=== PATIENT | female | born 1965 | race Caucasian/White ===

== ENCOUNTER 2020-05-24 00:50 | Emergency (ER) | payer BC ==
[~2020-05-24] VITALS: Ht 160 cm; Wt 77.1 kg
[2020-05-24] MEDS ORDERED: VENT7GM INH (01:31)
== END 2020-05-24 01:50 | disposition home or self-care (01) ==
LOC: ED 00:50
DX: J20.9 Acute bronchitis, unspecified (principal); Z20.828 Contact with and (suspected) exposure to other viral communicable diseases; F17.210 Nicotine dependence, cigarettes, uncomplicated; Z88.0 Allergy status to penicillin; Z88.6 Allergy status to analgesic agent

== ENCOUNTER → 2020-08-01 | Outpatient (CLI) | payer BC ==
[~2020-08-01] MED LIST: VENT7GM INH
== END | disposition home or self-care (01) ==
LOC: COVID19 14:58
PROVIDERS: ATTEND Nurse Practitioner Primary Care
DX: Z20.828 Contact with and (suspected) exposure to other viral communicable diseases (principal)

== ENCOUNTER 2021-04-23 16:13 | Emergency (ER) | payer BC ==
[~2021-04-23] VITALS: Wt 75.3 kg
[2021-04-23] MEDS ORDERED: TYLENOL325 M1 PO (17:41)
[2021-04-23] MEDS ORDERED: ZOFRAN4 MG PO (17:41)
== END 2021-04-23 18:02 | disposition home or self-care (01) ==
LOC: ED 16:13
DX: R51.9 Headache, unspecified (principal); Z20.822 Contact with and (suspected) exposure to COVID-19; R11.0 Nausea; R43.8 Other disturbances of smell and taste; R53.83 Other fatigue; Z88.0 Allergy status to penicillin; Z88.5 Allergy status to narcotic agent; Z79.899 Other long term (current) drug therapy

== ENCOUNTER → 2021-04-28 | Outpatient (CLI) | payer BC ==
[~2021-04-28] MED LIST changes: +TYLENOL325 M1 PO; +ZOFRAN4 MG PO
[2021-04-28 15:17] LABS: BASO % 0.4 % (0.0-1.0); EOS # 0.1 10*3/uL (0.0-0.4); EOS % 1.8 % (1.0-4.0); HEMATOCRIT 38.3 % (37.0-47.0); LYMPH # 3.1 10*3/uL (1.3-4.4); LYMPH % 38.4 % (27.0-41.0); MEAN CELL VOLUME 93.2 fl (81.0-99.0); MEAN CORPUSCULAR HGB 31.4 pg (27.0-31.0); MEAN CORPUSCULAR HGB CONC 33.7 g/dl (33.0-37.0); MONO # 0.7 10*3/uL (0.1-1.0); MONO % 9.3 % (3.0-9.0); NEUT % 49.8 % (47.0-73.0); PLATELET COUNT AUTOMATED 238 10*3/uL (130-400); RED BLOOD COUNT 4.11 10*6/uL (4.10-5.10); RETICULOCYTE % 0.93 % (0.50-2.50)
[2021-04-28 15:18] LABS: BILIRUBIN Negative (Negative); BLOOD Trace-Lysed (Negative); CLARITY Clear (Clear); COLOR Yellow (Yellow); GLUCOSE Negative (Negative); KETONE Negative (Negative); LEUKO ESTERASE 2+ (Negative); NITRITE Negative (Negative); PH 5.5 (4.5-8.0); SPECIFIC GRAVITY 1.015 (1.001-1.030)
[2021-04-28 15:30] LABS: BACTERIA TRACE
[2021-04-28 15:47] LABS: ALBUMIN 3.6 gm/dl (3.1-4.5); ALKALINE PHOSPHATASE 102 U/L (45-117); BUN 16 mg/dl (7-24); CHLORIDE 104 mmol/L (98-107); CHOLESTEROL 166 mg/dL (<200); CREATININE 0.88 mg/dL (0.55-1.02); GAMMA GLUTAMYL TRANSPEPTIDASE 23 U/L (5-55); IRON 91 ug/dL (50-170); LDL CHOLESTEROL 74 mg/dL (9-159); SGOT/AST 18 IU/L (3-35); SGPT/ALT 31 U/L (12-78); SODIUM 138 mmol/L (136-145); TOTAL IRON BINDING CAPACITY 354 ug/dl (250-450); TOTAL PROTEIN 7.1 gm/dL (6.4-8.2); TRIGLYCERIDES 204 mg/dl (<150)
[2021-04-28 15:54] LABS: THYROID STIM HORMONE (HS) 0.619 uIU/ml (0.358-4.75); URIC ACID 5.1 mg/dL (2.6-6.0)
[2021-04-28 15:56] LABS: FERRITIN 125.2 ng/mL (10.0-291.0); VITAMIN D, 25-HYDROXY 80.8 ng/mL (30-100)
[2021-04-29 08:08] LABS: RHEUMATOID ARTHRITIS FACTOR <10.0 IU/mL (0.0-13.9)
[2021-04-29 13:06] LABS: ANTI-DSDNA ANTIBODIES <1 IU/mL (0-9)
== END | disposition home or self-care (01) ==
LOC: LAB 14:53
PROVIDERS: ATTEND Family Medicine
DX: R79.89 Other specified abnormal findings of blood chemistry (principal); R53.83 Other fatigue; E78.5 Hyperlipidemia, unspecified; E55.9 Vitamin D deficiency, unspecified

== ENCOUNTER → 2021-05-16 | Outpatient (CLI) | payer BC ==
[2021-05-16 15:49] LABS: BILIRUBIN Negative (Negative); BLOOD Negative (Negative); CLARITY Clear (Clear); COLOR Yellow (Yellow); GLUCOSE Negative (Negative); KETONE Negative (Negative); LEUKO ESTERASE Negative (Negative); NITRITE Negative (Negative); SPECIFIC GRAVITY 1.015 (1.001-1.030); UROBILINOGEN 0.2 E.U./dl (0.0-1.0)
[2021-05-16 16:46] LABS: BACTERIA TRACE
== END | disposition home or self-care (01) ==
LOC: LAB 14:30
PROVIDERS: ATTEND Family Medicine
DX: R79.89 Other specified abnormal findings of blood chemistry (principal); R53.83 Other fatigue

== ENCOUNTER → 2021-06-01 | Outpatient (CLI) | payer BC | END | disposition home or self-care (01) | LOC: CARD 14:46 | PROVIDERS: ATTEND Nurse Practitioner | DX: F90.0 Attention-deficit hyperactivity disorder, predominantly inattentive type (principal) ==

== ENCOUNTER 2021-12-05 20:28 | Emergency (ER) | payer BC ==
[~2021-12-05] VITALS: Ht 167.6 cm; Wt 75.7 kg
== END 2021-12-05 23:00 | disposition home or self-care (01) ==
LOC: ED 20:28
DX: S01.01XA Laceration without foreign body of scalp, initial encounter (principal); Z88.0 Allergy status to penicillin; Z88.8 Allergy status to other drugs, medicaments and biological substances; W18.39XA Other fall on same level, initial encounter; Y93.89 Activity, other specified; Y92.89 Other specified places as the place of occurrence of the external cause; Y99.8 Other external cause status

== ENCOUNTER → 2021-12-12 | Outpatient (CLI) | payer BC ==
[2021-12-12 17:00] LABS: BASO # 0.1 10*3/uL (0.0-0.1); BASO % 0.7 % (0.0-1.0); EOS # 0.1 10*3/uL (0.0-0.4); EOS % 1.5 % (1.0-4.0); HEMATOCRIT 38.9 % (37.0-47.0); LYMPH # 2.9 10*3/uL (1.3-4.4); LYMPH % 39.3 % (27.0-41.0); MEAN CELL VOLUME 93.3 fl (81.0-99.0); MEAN CORPUSCULAR HGB 31.2 pg (27.0-31.0); MEAN CORPUSCULAR HGB CONC 33.4 g/dl (33.0-37.0); MEAN PLATELET VOLUME 10.8 fl (9.6-12.3); MONO # 0.7 10*3/uL (0.1-1.0); MONO % 9.5 % (3.0-9.0); NEUT # 3.6 10*3/uL (2.3-7.9); NEUT % 48.9 % (47.0-73.0); PLATELET COUNT AUTOMATED 220 10*3/uL (130-400); RED BLOOD COUNT 4.17 10*6/uL (4.10-5.10); RED CELL DISTRI WIDTH 11.9 % (0-14.5); RETICULOCYTE % 0.92 % (0.50-2.50); WHITE BLOOD COUNT 7.3 10*3/uL (4.8-10.8)
[2021-12-12 17:00] LABS: BILIRUBIN Negative (Negative); BLOOD Negative (Negative); CLARITY Clear (Clear); COLOR Yellow (Yellow); GLUCOSE Negative (Negative); KETONE Negative (Negative); LEUKO ESTERASE 1+ (Negative); NITRITE Negative (Negative); SPECIFIC GRAVITY 1.015 (1.001-1.030); UROBILINOGEN 0.2 E.U./dl (0.0-1.0)
[2021-12-12 17:17] LABS: ALKALINE PHOSPHATASE 91 U/L (45-117); BUN 17 mg/dl (7-24); CHLORIDE 104 mmol/L (98-107); CHOLESTEROL 201 mg/dL (<200); CREATININE 0.79 mg/dL (0.55-1.02); GAMMA GLUTAMYL TRANSPEPTIDASE 15 U/L (5-55); IRON 50 ug/dL (50-170); LDL CHOLESTEROL 117 mg/dL (9-159); POTASSIUM 4.2 mmol/L (3.5-5.1); SGOT/AST 17 IU/L (3-35); SGPT/ALT 20 U/L (12-78); SODIUM 138 mmol/L (136-145); TOTAL IRON BINDING CAPACITY 394 ug/dl (250-450); TOTAL PROTEIN 7.4 gm/dL (6.4-8.2); TRIGLYCERIDES 56 mg/dl (<150)
[2021-12-12 17:22] LABS: THYROID STIM HORMONE (HS) 0.912 uIU/ml (0.358-4.75)
[2021-12-12 17:24] LABS: BACTERIA 1+; MUCOUS 1+
== END | disposition home or self-care (01) ==
LOC: LAB 16:40
PROVIDERS: ATTEND Family Medicine
DX: R79.89 Other specified abnormal findings of blood chemistry (principal); R53.83 Other fatigue; E78.5 Hyperlipidemia, unspecified; E55.9 Vitamin D deficiency, unspecified; R74.8 Abnormal levels of other serum enzymes

== ENCOUNTER → 2021-12-15 | Outpatient (CLI) | payer BC | END | disposition home or self-care (01) | LOC: RAD 11:11 | PROVIDERS: ATTEND Family Medicine | DX: M17.12 Unilateral primary osteoarthritis, left knee (principal) ==

== ENCOUNTER → 2022-01-24 | Outpatient (CLI) | payer BC | END | disposition home or self-care (01) | LOC: MRI 01-12 10:00 | PROVIDERS: ATTEND Family Medicine | DX: S83.282A Other tear of lateral meniscus, current injury, left knee, initial encounter (principal); S83.242A Other tear of medial meniscus, current injury, left knee, initial encounter; X58.XXXA Exposure to other specified factors, initial encounter; Y93.89 Activity, other specified; Y92.89 Other specified places as the place of occurrence of the external cause; Y99.8 Other external cause status ==

== ENCOUNTER 2024-11-06 17:48 | Emergency (ER) | payer BC ==
[~2024-11-06] VITALS: Ht 160 cm; Wt 78.2 kg
[~2024-11-06 17:48] MED LIST changes: +ATORVASTATIN CA20 M1 PO; +CELECOXIB200 M1 PO; +CIPRO500 MG PO; +FAMOTIDINE20 M1 PO; +LEVOFLOXACIN750 M2 PO; +METRONIDAZOLE500 M1 PO; +MIRTAZAPINE15 M2 PO; +NURTEC ODT75 MG PO; +SUMATRIPTAN SU100 M1 PO; +TOPIRAMATE50 M2 PO; +VANCOCIN125 M1 PO; +VIBRAMYCIN100 MG PO; +VITAMIN D350 MC2 GT; +XARELTO1 EACH PO
[2024-11-06] MEDS ORDERED: LASIX20 MG PO ×2 (18:29→19:29)
[2024-11-06 18:37] LABS: BASO # 0.1 10*3/uL (0.0-0.1); BASO % 0.7 % (0.0-1.0); EOS # 0.3 10*3/uL (0.0-0.4); EOS % 4.3 % (1.0-4.0); HEMATOCRIT 34.2 % (37.0-47.0); MEAN CELL VOLUME 94.7 fl (81.0-99.0); MEAN CORPUSCULAR HGB 30.2 pg (27.0-31.0); MEAN CORPUSCULAR HGB CONC 31.9 g/dl (33.0-37.0); MEAN PLATELET VOLUME 10.1 fl (9.6-12.3); MONO # 0.6 10*3/uL (0.1-1.0); NEUT # 2.4 10*3/uL (2.3-7.9); NEUT % 35.4 % (47.0-73.0); PLATELET COUNT AUTOMATED 271 10*3/uL (130-400); RED BLOOD COUNT 3.61 10*6/uL (4.10-5.10); WHITE BLOOD COUNT 6.7 10*3/uL (4.8-10.8)
[2024-11-06 18:57] LABS: BUN 12 mg/dl (9-23); CHLORIDE 107 mmol/L (98-107); POTASSIUM 3.9 mmol/L (3.4-5.1)
== END 2024-11-06 19:42 | disposition home or self-care (01) ==
LOC: ED 17:48
PROVIDERS: Emergency Medicine
DX: R22.41 Localized swelling, mass and lump, right lower limb (principal); R22.42 Localized swelling, mass and lump, left lower limb; I10 Essential (primary) hypertension; E78.5 Hyperlipidemia, unspecified; Z88.0 Allergy status to penicillin; Z88.5 Allergy status to narcotic agent; Z79.899 Other long term (current) drug therapy; Z79.2 Long term (current) use of antibiotics; Z90.711 Acquired absence of uterus with remaining cervical stump; Z98.890 Other specified postprocedural states; Z86.711 Personal history of pulmonary embolism

== ENCOUNTER → 2024-11-07 | Outpatient (CLI) | payer BC ==
[~2024-11-07] MED LIST changes: +LASIX20 MG PO
== END | disposition home or self-care (01) ==
LOC: US 09:43
PROVIDERS: ATTEND Emergency Medicine
DX: R60.0 Localized edema (principal)